=== PATIENT | female | born 1990 | race Asian ===

== ENCOUNTER 2019-09-22 21:02 | Emergency (ER) | payer BC ==
[~2019-09-22] VITALS: Ht 157.5 cm; Wt 101.4 kg
--- NOTE | 2019-09-22 21:56 | NUR ---
Erika RN: Provider in to evtoby pt. Pt c/o lower abd pain and LUQ and pain since approx 1700 tonight. States N/V earlier but that has resolved at this time. No s/s of acute distress. Pt up to BR to provide UA. Warm blanket given. Call light in reach.
--- NOTE | 2019-09-22 22:02 | NUR ---
Erika RN: SHAYE collected and sent.
[2019-09-22 22:25] LABS: MICROSCOPIC AUTO
[2019-09-22 22:26] LABS: CULTURE INDICATED? YES
[2019-09-22] MEDS ORDERED: PHENAZOPYRIDINE 200 MG TABLET PO ONE (22:30)
[2019-09-22] MEDS ORDERED: CEFDINIR 300 MG CAPSULE PO ONE (22:30)
[2019-09-22] MEDS ORDERED: CEFDINIR 300 MG CAPSULE ONE (22:43)
[2019-09-22] MEDS ORDERED: PHENAZOPYRIDINE 200 MG TABLET ONE (22:43)
[2019-09-22 23:07] VITALS: BP 112/62
== END 2019-09-22 23:12 | disposition home or self-care (01) ==
LOC: ED 22:50
DX: N39.0 Urinary tract infection, site not specified (principal); R11.2 Nausea with vomiting, unspecified
CPT/HCPCS: 81001; 81025; 87077; 87086; 87186; 99283